=== PATIENT | male | born 1980 | race African-American/Black ===

== ENCOUNTER 2018-11-05 09:16 | Emergency (ER) | payer BC ==
--- NOTE | 2018-11-05 11:28 | CR ---
Chest: Two views of the chest were obtained. Comparison: Previous chest x-ray of 07/10/15. Heart size and mediastinum are normal. Lungs are clear. Bony structures are unremarkable. Impression: Nothing acute is seen on two view chest x-ray. Diagnostic code #1 MTDD
--- NOTE | 2018-11-05 11:33 | CR ---
Cervical spine: AP, lateral and odontoid views of the cervical spine were obtained. Comparison: Previous cervical spine exam of 07/10/15. Slight deformity of the vertebral bodies are noted of C3, C4 and C5 which is developmental. Anterior osteophytes are noted at C3-C4, C4-C5, C5-C6 and C6- C7. No posterior osteophytes are seen. Disc spaces are preserved. Prevertebral soft tissues are normal. No subluxation or fracture is seen. Impression: 1. Mild degenerative change and developmental findings as noted above. 2. Nothing acute is appreciated on 3 view cervical spine study. Note: Degenerative spurring slightly progressed from previous exam. Diagnostic code #2 MTDD
--- NOTE | 2018-11-05 11:34 | CR ---
Lumbar spine: AP, lateral and coned-down lateral view centered to the lumbosacral junction were obtained. Comparison: Previous lumbar spine study of 01/01/15. Vertebral body heights and disc spaces are maintained. Very minimal scattered endplate osteophytes are seen. Pedicles are intact. Transverse and spinous processes are intact. No subluxation or fracture is appreciated. Pressure: 1. Minimal scattered endplate osteophytes. 2. Three-view lumbar spine study is otherwise unremarkable. Nothing acute is identified. Diagnostic code #2 MTDD
--- NOTE | 2018-11-05 11:35 | CR ---
Thoracic spine: AP and lateral views of the thoracic spine were obtained. Comparison: No previous study is available. Minimal scoliosis is noted. Vertebral body heights are maintained. Pedicles are intact. No subluxation or fracture is seen. Impression: 1. Minimal scoliosis. 2. Nothing acute is seen on two-view thoracic spine study. Diagnostic code #2 MTDD
[2018-11-05] MEDS ORDERED: Ketorolac 60 MG/2 ML SDV IM ONE (11:57)
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
[2018-11-05 13:14] VITALS: BP 155/107; PULSE 83
== END 2018-11-05 12:19 | disposition home or self-care (01) ==
LOC: MW.ED 09:16
DX: M79.10 Myalgia, unspecified site (principal); Z79.899 Other long term (current) drug therapy
CPT/HCPCS: 71046; 72040; 72070; 72100; 96372; 99283; J1885

== ENCOUNTER 2019-06-23 17:36 | Emergency (ER) | payer BC ==
[2019-06-23 17:51] VITALS: BP 146/97; PULSE 80
[2019-06-23] MEDS ORDERED: Ketorolac 60 MG/2 ML SDV IM ONE (17:52)
--- NOTE | 2019-06-23 17:57 | EDM.PDOC ---
ED HPI GENERAL MEDICAL PROBLEM - General Chief Complaint: Lower Extremity Injury/Pain Stated Complaint: LEFT KNEE INJURY Time Seen by Provider: 06/23/19 17:37 Source of Information: Reports: Patient History Limitations: Reports: No Limitations - History of Present Illness INITIAL COMMENTS - FREE TEXT/NARRATIVE: HISTORY AND PHYSICAL: History of present illness: Patient is a 39-year-old male who presents to the emergency room with complaints of left medial of the pain x 1 day. He states he woke up this morning with pain to the medial aspect of his left knee which is painful with ambulation and deep palpitation. He denies any injury, trauma or falls. Reports that yesterday was a normal day and had not done any vigorous activity which would cause him to have pain. He attempted to get into the Orthopedic Clinic today; but was told he needed to come to the emergency room or primary care clinic for x-ray before they would see him. Patient denies any fever, chills, headache, change in vision, syncope or near syncope. Denies any chest pain, back pain, shortness of breath or cough. Denies any GI or symptoms. Patient has been eating and drinking appropriately. Review of systems: As per history of present illness and below otherwise all systems reviewed and negative. Past medical history: As per history of present illness and as reviewed below otherwise noncontributory. Surgical history: As per history of present illness and as reviewed below otherwise noncontributory. Social history: See social history for further information Family history: As per history of present illness and as reviewed below otherwise noncontributory. Physical exam: General: Well-developed and well-nourished 39-year-old -[place] male. Alert and oriented. Nontoxic-appearing and in no acute distress. HEENT: Atraumatic, normocephalic, pupils equal and reactive bilaterally, negative for conjunctival pallor or scleral icterus, mucous membranes moist, trachea midline. No drooling or trismus noted. No meningeal signs. No hot potato voice noted. Lungs: Clear to auscultation, breath sounds equal bilaterally. Heart: S1S2, regular rate and rhythm without overt murmur Abdomen: Soft, nondistended, nontender. Skin: Intact, warm, dry. No erythema or soft tissue swelling. No lesions or rashes noted. Extremities: Atraumatic, moves all extremities per self without difficulty or deficits, negative for cords or calf pain. Negative knee instability. Negative drawer test. Neurovascular unremarkable. Neuro: Awake, alert, oriented. Cranial nerves II through XII unremarkable. Cerebellum unremarkable. Motor and sensory unremarkable throughout. Exam nonfocal. Notes: We did discuss the limitations of x-ray, he would like to move forward with this. We will give him some Toradol IM while waiting for results. X-ray shows no marcos abnormalities. Patellar cut out knee sleeve and crutches for suspected ligament injury or muscle strain of right knee. Signs and symptoms that would prompt him to return to the ED were reviewed and discussed. Supportive care measures were reviewed and discussed. Voices understanding and is agreeable to plan of care. Denies any further questions or concerns at this time. Diagnostics: X-ray Therapeutics: Toradol IM, Knee cut out and crutches Prescription: Diclofenac Impression: Left knee pain Plan: 1. Rest, ice, elevate the affected extremity. Please wear the splint as directed. 2. Tylenol as needed for pain management. Diclofenac as directed; take with food. Do not take any additional NSAIDs such as Ibuprofen or Aleve with the medication. 3. Follow up with the Orthopedic provider as we discussed. Return to the ED as needed and as discussed. Definitive disposition and diagnosis as appropriate pending reevaluation and review of above. Left Knee Pain Score (Numeric/FACES): 8 - Related Data Allergies Allergy/AdvReac Type Severity Reaction Status Date / Time No Known Allergies Allergy Verified 06/23/19 17:49 Home Meds: Home Meds . [No Known Home Meds] 06/23/19 [History] Past Medical History - Past Health History Medical/Surgical History: Denies Medical/Surgical History HEENT History: Reports: None Cardiovascular History: Reports: None Respiratory History: Reports: None Gastrointestinal History: Reports: None Genitourinary History: Reports: None Musculoskeletal History: Reports: Other (See Below) Other Musculoskeletal History: frequent left shoulder dislocations Neurological History: Reports: None Psychiatric History: Reports: None Endocrine/Metabolic History: Reports: None Hematologic History: Reports: None Immunologic History: Reports: None Oncologic (Cancer) History: Reports: None Dermatologic History: Reports: Other (See Below) Other Dermatologic History: acne - Infectious Disease History Infectious Disease History: Reports: None - Past Surgical History Head Surgeries/Procedures: Reports: None Musculoskeletal Surgical History: Reports: Shoulder Surgery Social & Family History - Family History Family Medical History: Noncontributory - Caffeine Use Caffeine Use: Reports: None Review of Systems - Review of Systems Review Of Systems: Comprehensive ROS is negative, except as noted in HPI. ED EXAM, GENERAL - Physical Exam Exam: See Below (See dictation) Course - Vital Signs Last Recorded V/S: Last Vital Signs Temp 97.3 F 06/23/19 17:50 Pulse 80 06/23/19 17:50 Resp 17 06/23/19 17:50 BP 146/97 H 06/23/19 17:50 Pulse Ox 99 06/23/19 17:50 - Orders/Labs/Meds Orders: Active Orders 24 hr Category Date Time Status DME for Discharge [COMM] Stat Oth 06/23/19 18:04 Ordered Meds: Medications Discontinued Medications Generic Name Dose Route Start Last Admin Trade Name Freq PRN Reason Stop Dose Admin Ketorolac Tromethamine 60 mg 06/23/19 17:52 06/23/19 17:56 Toradol IM 06/23/19 17:53 60 mg ONETIME ONE Administration Departure - Departure Time of Disposition: 18:53 Disposition: Home, Self-Care 01 Clinical Impression: Left medial knee pain - Discharge Information Instructions: Acute Knee Pain, Adult, [id number] Referrals: PCP,None [Primary Care Provider] - Forms: ED Department Discharge Additional Instructions: The following information is given to patients seen in the emergency department who are being discharged to home. This information is to outline your options for follow-up care. We provide all patients seen in our emergency department with a follow-up referral. The need for follow-up, as well as the timing and circumstances, are variable depending upon the specifics of your emergency department visit. If you don't have a primary care physician on staff, we will provide you with a referral. We always advise you to contact your personal physician following an emergency department visit to inform them of the circumstance of the visit and for follow-up with them and/or the need for any referrals to a consulting specialist. The emergency department will also refer you to a specialist when appropriate. This referral assures that you have the opportunity for follow-up care with a specialist. All of these measure are taken in an effort to provide you with optimal care, which includes your follow-up. Under all circumstances we always encourage you to contact your private physician who remains a resource for coordinating your care. When calling for follow-up care, please make the office aware that this follow-up is from your recent emergency room visit. If for any reason you are refused follow-up, please contact the [facility] Emergency Department at and asked to speak to the emergency department charge nurse. [facility] Specialty Care - Orthopedic [facility] Professional [address], [address] [place] [address] 1. Rest, ice, elevate the affected extremity. Please wear the splint and use crutches as directed. 2. Tylenol as needed for pain management. Diclofenac as directed; take with food. Do not take any additional NSAIDs such as Ibuprofen or Aleve with the medication. 3. Follow up with the Orthopedic provider as we discussed. Return to the ED as needed and as discussed. Sepsis Event Note - Evaluation Sepsis Screening Result: No Definite Risk - Focused Exam Vital Signs: Vital Signs Temp Pulse Resp BP Pulse Ox 06/23/19 17:50 97.3 F 80 17 146/97 H 99 Date Exam was Performed: 06/23/19 Time Exam was Performed: 18:53 - My Orders Last 24 Hours: My Active Orders 06/23/19 18:04 DME for Discharge [COMM] Stat - Assessment/Plan Last 24 Hours: My Active Orders 06/23/19 18:04 DME for Discharge [COMM] Stat
--- NOTE | 2019-06-23 18:49 | CR ---
Left knee: AP, lateral and sunrise patellar views left knee were obtained. Comparison: No prior knee exam. Medial and lateral joint spaces are maintained in height. No discrete joint effusion is seen. No fracture or other bony abnormality is appreciated. Impression: 1. Nothing acute is appreciated on 3 view left knee exam. Diagnostic code #1 This report was dictated in MDT
== END 2019-06-23 19:19 | disposition home or self-care (01) ==
LOC: MW.ED 17:36
DX: M25.562 Pain in left knee (principal)
CPT/HCPCS: 73562; 96372; 99283; J1885

== ENCOUNTER 2020-05-12 06:44 | Day surgery (SDC) | payer BC ==
[~2020-05-12 06:44] MED LIST: Lactated Ringers 1,000 ML IV SCH
[2020-05-12] MEDS ORDERED: Midazolam 1 MG/ML 2 ML SDV ONE (07:10)
[2020-05-12] MEDS ORDERED: Lidocaine 2% 5 ML SDV ONE (07:10)
[2020-05-12] MEDS ORDERED: Propofol 200 MG/20 ML SDV ONE (07:10)
[2020-05-12] MEDS ORDERED: Glycopyrrolate 0.2 MG/ML SDV ONE (07:10)
--- NOTE | 2020-05-12 07:46 | PCM.PREANE ---
Preanesthetic Assessment - Anesthesia/Transfusion/Family Hx Anesthesia History: Prior Anesthesia Without Reaction Family History of Anesthesia Reaction: No Transfusion History: No Prior Transfusion(s) - Review of Systems General: No Symptoms Pulmonary: No Symptoms Cardiovascular: No Symptoms Gastrointestinal: No Symptoms Neurological: No Symptoms Other: Reports: None - Physical Assessment NPO Status Date: 05/12/20 NPO Status Time: 00:05 Height: 5 ft 4 in Weight: 167 lb ASA Class: 2 Mental Status: Alert & Oriented x3 Dentition: Reports: Normal Dentition ROM/Head Extension: Full Lungs: Clear to Auscultation, Normal Respiratory Effort Cardiovascular: Regular Rate, Regular Rhythm - Allergies Allergies/Adverse Reactions: Allergies Allergy/AdvReac Type Severity Reaction Status Date / Time No Known Allergies Allergy Verified 05/10/20 14:33 - Acknowledgements Anesthesia Type Planned: General Anesthesia Pt an Appropriate Candidate for the Planned Anesthesia: Yes Alternatives and Risks of Anesthesia Discussed w Pt/Guardian: Yes Pt/Guardian Understands and Agrees with Anesthesia Plan: Yes Additional Comments: npo after mn no cv problems elevated bp no rx no recent ilness par no questions tob none etoh rare PreAnesthesia Questionnaire - Past Health History Medical/Surgical History: Denies Medical/Surgical History HEENT History: Reports: None Cardiovascular History: Reports: None Respiratory History: Reports: None Gastrointestinal History: Reports: Other (See Below) Other Gastrointestinal History: occasional heartburn Genitourinary History: Reports: None Musculoskeletal History: Reports: None Neurological History: Reports: None Psychiatric History: Reports: None Endocrine/Metabolic History: Reports: None Hematologic History: Reports: None Immunologic History: Reports: None Oncologic (Cancer) History: Reports: None Dermatologic History: Reports: Other (See Below) Other Dermatologic History: acne - Infectious Disease History Infectious Disease History: Reports: None - Past Surgical History Head Surgeries/Procedures: Reports: None HEENT Surgical History: Reports: None Cardiovascular Surgical History: Reports: None Respiratory Surgical History: Reports: None GI Surgical History: Reports: Appendectomy Male Surgical History: Reports: None Endocrine Surgical History: Reports: None Neurological Surgical History: Reports: None Musculoskeletal Surgical History: Reports: Shoulder Surgery Other Musculoskeletal Surgeries/Procedures:: left shoulder arthroscopy Oncologic Surgical History: Reports: None Dermatological Surgical History: Reports: None - SUBSTANCE USE Tobacco Use Status *Q: Never Tobacco User - HOME MEDS Home Medications: Home Meds . [No Known Home Meds] 05/10/20 [History] - CURRENT (IN HOUSE) MEDS Current Meds: Current Medications Lactated Ringer's (Ringers, Lactated) 1,000 mls @ 125 mls/hr IV ASDIRECTED MAGALYS Discontinued Medications Glycopyrrolate (Glycopyrrolate 0.2 Mg/Ml Sdv) Confirm Administered Dose 0.2 mg .ROUTE .STK-MED ONE Stop: 05/12/20 07:11 Lidocaine (Lidocaine 2% 5 Ml Sdv) Confirm Administered Dose 5 ml .ROUTE .STK-MED ONE Stop: 05/12/20 07:11 Midazolam HCl (Midazolam 1 Mg/Ml 2 Ml Sdv) Confirm Administered Dose 2 mg .ROUTE .STK-MED ONE Stop: 05/12/20 07:11 Propofol (Propofol 200 Mg/20 Ml Sdv) Confirm Administered Dose 600 mg .ROUTE .STK-MED ONE Stop: 05/12/20 07:11
--- NOTE | 2020-05-12 08:44 | PCM.OPNOTE ---
- General Post-Op/Procedure Note Date of Surgery/Procedure: 05/12/20 Operative Procedure(s): egd w bx. colonoscopy w bx Findings: see [id number] start on omeprazole 40 mg qday X 2 month w 3 refills Pre Op Diagnosis: abd pain Post-Op Diagnosis: Same Anesthesia Technique: Moderate Sedation Primary Surgeon: Schuyler Chan Pathology: egd bx random colon bx and polyp 5mm at 1 m while scope coming out Complications: None Condition: Good
--- NOTE | 2020-05-12 09:27 | PCM.POSTAN ---
POST ANESTHESIA ASSESSMENT - MENTAL STATUS Mental Status: Alert, Oriented - VITAL SIGNS Vital Signs: Last Vital Signs Temp 98.2 F 05/12/20 07:43 Pulse 85 05/12/20 09:10 Resp 14 05/12/20 09:10 BP 106/70 05/12/20 09:10 Pulse Ox 92 L 05/12/20 09:10 - RESPIRATORY Respiratory Status: Respiratory Rate WNL, Airway Patent, O2 Saturation Stable - CARDIOVASCULAR CV Status: Pulse Rate WNL, Blood Pressure Stable - GASTROINTESTINAL GI Status: No Symptoms - POST OP HYDRATION Hydration Status: Adequate & Stable
[2020-05-12 10:58] VITALS: BP 113/71; PULSE 84
--- NOTE | 2020-05-12 15:39 | OR ---
SURGEON: Schuyler Chan MD DATE OF PROCEDURE: 05/12/2020 PREOPERATIVE DIAGNOSIS: Abdominal pain for one year. POSTOPERATIVE DIAGNOSIS: Gastric ulcer. PROCEDURE PERFORMED: Esophagogastroduodenoscopy with biopsy and colonoscopy with biopsy. DESCRIPTION OF PROCEDURES: EGD: The patient was taken to the endoscopy room, and with the BEAM BUILDER, Diprivan was administered. A well-lubricated EGD scope was gently inserted through the oropharynx, down the esophagus, passing through the gastroesophageal junction, into the stomach. The mucosa was examined upon the passage. Any etiology will be noted. Once in the stomach, we continued to advance to the distal antrum, passed through the pylorus into the second portion of the duodenum. Again, the mucosa was examined for any abnormality and etiology. The scope was then retrieved back to the stomach and then retroflexed to look at the fundus of the stomach. If a biopsy was indicated, we will biopsy the antrum, body, and gastroesophageal junction. The air will be sucked out while the scope is retrieved to reduce the patient's discomfort. The patient tolerated the procedure well. There were no intraoperative complications. Dr. Chan was present through the whole procedure. Prior to surgery, a time-out had been called, the patient identified, procedure identified and antibiotic administered. Colonoscopy with biopsy: The patient was taken to the endoscopy room. A time out was called, patient identified, and procedure identified. Diprivan was then administrated. Patient went from awake to sleep, hearing doctor talking or door closing is normal. Perineum inspection and digital examination were then performed. A well-lubricated colonoscope was gently inserted through the rectum, advanced past the rectosigmoid junction, the descending colon, splenic flexure, transverse colon, hepatic flexure, ascending colon, arrived to the cecum. Cecum was identified as dictated in the finding. Then the scope was carefully withdrawn while attention was paid to the mucosal surface for any abnormality. Air will be sucked out during the scope withdrawal. At the rectum, retroflexed to examine any rectal diseases, fistula or hemorrhoids. During mucosal examination, abnormality or polyp was noted; picture taken and biopsy performed. Patient tolerated procedure well. There were no intraoperative complications, and Dr. Chan was present throughout the whole procedure. ESOPHAGOGASTRODUODENOSCOPY FINDINGS: 1. The patient is easily sedated with BEAM BUILDER and Diprivan, the patient is soundly snoring. 2. Oropharynx and proximal esophagus are free of disease. No pathology. There is no inflammation, stricture, ulceration, bleeding, none of those; or varicosity. Distal esophagus at GE junction at 40 shows a flame-like salmon-colored change and an area also consistent with esophagitis. So, the patient has acid reflux. Stomach rugae are normal in appearance. There is no bile, blood, or food particle observed. In the antrum, there are four areas of ulcer. One area is almost like 3 x 4 mm, pretty big. It is not a bleeding ulcer and but it is harpal ulcer. It was biopsied. Duodenum is grossly normal. On retroflexed look at the fundus of the stomach, there is no hiatal hernia. Biopsy done of antral ulcer x2 and biopsy of the body and biopsy at GE junction at 40 and sucked out the gas while scope moving out. COLONOSCOPY FINDINGS: 1. The patient is easily sedated with BEAM BUILDER and Diprivan, the patient is soundly snoring. 2. Bowel prep is unacceptable. Solid stool, liquid stool, and semi-formed stool all the way to transverse colon. Required tremendous amount of irrigation. So, this study does count as colonoscopy. Anyway, colon rather straightforward. Cecum indicated by ileocecal fold, one-to-one indentation, appendiceal orifice, and ScopeGuide is pointing south. Mucosa examined upon scope pulling out with a large amount of irrigation. You can only irrigate so much after the transverse colon, it is just completely blocked with solid stool. There is a small polyp at distance 1 m when the scope pulling out. It is a 4 mm small polyp and removed with biopsy forceps. Otherwise, I do not see diverticulosis, inflammation, stricture, ulceration, AV malformation, bleeding, none of those, but again this is under completely solid stool, cannot even irrigate. So, this colonoscopy does not count. Stool color is yellow. The patient does not have external hemorrhoids. The patient has mild internal hemorrhoids. The patient would benefit from repeat colonoscopy in three to six months or if clinically indicated otherwise. Random biopsy also performed as the patient complained of abdominal pain. started on omeprazole 40mg po qday X 2 months w 3 refills [facility] / [facility][id number] [facility]
== END 2020-05-12 10:00 | disposition home or self-care (01) ==
LOC: MW.SDS 06:44
PROVIDERS: ATTEND Surgery
DX: K63.5 Polyp of colon (principal); K29.50 Unspecified chronic gastritis without bleeding; B96.81 Helicobacter pylori [H. pylori] as the cause of diseases classified elsewhere; K25.9 Gastric ulcer, unspecified as acute or chronic, without hemorrhage or perforation; K21.9 Gastro-esophageal reflux disease without esophagitis; K64.8 Other hemorrhoids; Z90.49 Acquired absence of other specified parts of digestive tract
CPT/HCPCS: 43239; 45380; J2250; J2704; J3490; J7120; 00813